=== PATIENT | male | born 1985 | race Caucasian/White ===

== ENCOUNTER 2021-12-24 11:18 | Emergency (ER) | payer OTHER, SELFPAY ==
--- NOTE | ~2021-12-24 | CT_ITS ---
EXAMINATION: CT abdomen pelvis w con DATE: 12/24/2021 13:33 INDICATION: RUQ abd pain history of questionable abd mass TECHNIQUE: Computed tomography (CT) of the abdomen and pelvis was performed with 100 mL Omnipaque-350 intravenous contrast. Automated exposure control and iterative reconstruction technique were employe d. The dose-length product was 355.44 mGy-cm. COMPARISON: None. FINDINGS: Lower thorax: Unremarkable Liver: Subcentimeter posterior cyst/hemangioma. Biliary/Gallbladder: Gallbladder is normal. No bile duct dilation. Pancreas: No mass or duct dilation. Spleen: Normal. Adrenals:No mass. Kidneys: No mass, stone, or hydronephrosis. GI tract: Esophageal and proximal gastric wall edema. No small or large bowel dilation. Normal append ix. Diverticulosis without diverticulitis. Mesentery/Peritoneum: No ascites, mass, or free air. Retroperitoneum: No mass. Pelvis: Pelvic organs are within normal limits. Soft Tissues: Soft tissues and body wall unremarkable. Bones: No acute osseous finding. IMPRESSION: Esophagitis/gastritis. No other acute abdominopelvic process detected. Reviewed, dictated and finalized at location [facility].
[2021-12-24 11:25] VITALS: BP 142/81; PULSE 70; RESP 14; TEMP 36.4; O2SAT 99
--- NOTE | 2021-12-24 12:08 | ED.ABDPAIN ---
HPI - Abdominal Pain General Chief Complaint: Abdominal Pain Stated Complaint: ABDOMINAL PAIN/NECK PAIN Time Seen by Provider: 12/24/21 12:08 Source: patient and RN notes reviewed Mode of arrival: ambulatory Limitations: no limitations History of Present Illness HPI narrative: Patient states he has had chronic diarrhea worse since his cholecystectomy. He had gone to another facility and [place] where they said that on a plain abdominal film there is some white mass that the doctor did know what it was. He denies any fever chills, he does state that the right upper quadrant abdominal pain seems to radiate to his right neck. MD elicited complaint: abdominal pain Pertinent past history: none Onset (ago): day(s) (3) Pain Consistency: constant Location: RUQ Severity: moderate Quality: aching and sharp Radiation: other (right neck) Migration to: no migration Exacerbating factors: nothing Relieving factors: nothing Associated symptoms: denies other symptoms Related Data Allergies Allergy/AdvReac Type Severity Reaction Status Date / Time No Known Allergies Allergy Verified 12/24/21 11:48 Review of Systems Review of Systems: All systems reviewed & are unremarkable except as noted in HPI and below PMFSH Past Medical History Medical History (Updated 12/24/21 @ 14:36 by Tu Reynaga MD) Chronic diarrhea Surgical History Surgical History (Updated 12/24/21 @ 12:09 by Tu Reynaga MD) History of appendectomy Hx of cholecystectomy Exam Const: General: healthy appearing and no acute distress Nutritional Appearance: well nourished Orientation/consciousness: patient oriented x3 Limitations: no limitations HENMT: Head: normal to inspection Ears: external ears normal Eyes: Conjunctivae: conjunctivae normal Pupils: Equal, round and reactive pupils present EOM: EOMs intact bilaterally Neck: Neck: normal visual inspection Resp: Effort & Inspection: normal respiratory effort Auscultation: clear to auscultation bilaterally Cardio: Rate: regular rate Rhythm: regular rhythm GI: GI Palp: Yes Soft to palpation, Yes Tenderness to palpation present (GI) (RUQ and epigastric moderate), Yes Guarding due to palpation present (GI) and No Rebound tenderness present Auscultation: normal bowel sounds Back/Spine/Pelvis: Back: no CVA tenderness Cervical Spine: cervical ROM normal Thoracic/Lumbar Spine: thoraco-lumbar ROM normal Skin: General skin exam: normal color Rashes: no rashes Neuro: General: patient oriented x3, moves all extremities, no focal motor deficits and CN's II-XI intact bilaterally Speech: normal speech Gait exam (Neuro): Normal gait present Extrem: General: normal to inspection and no clubbing, cyanosis or edema Psych: Mental Status: mental status grossly normal Affect: normal affect Attitude: cooperative Course Vital Signs Vital signs: Vital Signs Temperature 36.4 C L 12/24/21 11:25 Pulse Rate 70 12/24/21 11:25 Respiratory Rate 14 12/24/21 11:25 Blood Pressure 142/81 H 12/24/21 11:25 Pulse Oximetry 99 12/24/21 11:25 Oxygen Delivery Room Air 12/24/21 11:25 Temperature 36.8 C 12/24/21 14:40 Pulse Rate 78 12/24/21 14:40 Respiratory Rate 14 12/24/21 14:40 Blood Pressure 125/70 12/24/21 14:40 Pulse Oximetry 99 12/24/21 14:40 Oxygen Delivery Room Air 12/24/21 14:40 MDM - Abdominal Pain Differential Diagnosis Differential diagnosis: Likely abdominal pain, acute appendicitis, constipation, diverticulitis, gastroenteritis and small bowel obstruction Lab Data Attestation: I reviewed the patient's lab results. Result diagrams: 12/24/21 12:42 12/24/21 12:42 Labs: Lab Results 12/24/21 12/24/21 12/24/21 Range/Units 12:28 12:42 12:42 WBC 9.2 (4.8-10.8) K/mm3 RBC 4.66 L (4.70-6.10) M/mm3 Hgb 14.5 (14.0-18.0) g/dL Hct 42.3 (40.0-54.0) % MCV 90.8 (78.0-102.0) fL MCH 31.1 H (27.0-31.
--- NOTE | 2021-12-24 12:28 | ECG_ITS ---
Measurements Intervals [place] Rate: 61 P: 64 OR: 164 QRS: 98 QRSD: 104 T: 61 QT: 401 QTc: 406 Interpretive Statements SINUS RHYTHM BORDERLINE RIGHT AXIS DEVIATION [QRS AXIS > 90] NO PREVIOUS ECG AVAILABLE FOR COMPARISON Electronically Signed On 12-24-2021 16:51:43 CDT by Carolina Carvajal M.D.
[2021-12-24 12:42] LABS: Add Urine Microscopic? YES; Appearance Urine Clear (Clear); Bilirubin Urine Negative (Negative); Blood Urine Negative (Negative); Color Urine Yellow (Yellow); Glucose Urine UA Negative (Negative); Ketones Urine Trace (Negative); Leukocyte Esterase Ur Negative LEU/UL (Negative); Nitrate Urine Negative (Negative); Protein Urine Negative (Negative); Specific Grav Ur 1.025 (1.010-1.020); Urobilinogen Urine 0.2 mg/dL (0.2-1.0)
[2021-12-24 12:45] LABS: Basophils Absolute Auto 0.05 K/mm3 (0.00-0.10); Basophils Percent Auto 0.5 % (0.0-1.0); Eosinophils Absolute Auto 0.18 K/mm3 (0.02-0.50); Hematocrit 42.3 % (40.0-54.0); Hemoglobin 14.5 g/dL (14.0-18.0); Immature Granulocyte Absolute 0.03 K/mm3 (0.00-0.00); Immature Granulocyte Percent A 0.3 % (0.0-0.0); Lymphocytes Absolute Auto 2.58 K/mm3 (1.10-4.50); Lymphocytes Percent Auto 28.1 % (18.0-42.0); Mean Corpuscular HGB Conc 34.3 g/dL (32.0-36.0); Mean Corpuscular Hemoglobin 31.1 pg (27.0-31.0); Mean Corpuscular Volume 90.8 fL (78.0-102.0); Mean Platelet Volume 10.3 fl (8.7-11.0); Monocytes Absolute Auto 0.68 K/mm3 (0.10-0.90); Monocytes Percent Auto 7.4 % (2.0-11.0); Neutrophils Absolute Auto 5.7 K/mm3 (1.7-7.2); Neutrophils Percent Auto 61.7 % (50.0-70.0); Platelet Count Result 187 K/mm3 (150-420); Red Blood Count 4.66 M/mm3 (4.70-6.10); Red Cell Distribution Width 12.2 % (11.6-14.4); White Blood Count 9.2 K/mm3 (4.8-10.8)
[2021-12-24 12:47] LABS: Bacteria Urine Trace /hpf; Mucus Urine Few /lpf; RBC Urine None seen /hpf (0-2); Squamous Epithelial Cell Urine Rare /hpf (Few); WBC Urine None seen /hpf (0-3)
[2021-12-24 13:04] LABS: Lactic Acid Reflex 1.1 mmol/L (0.4-2.0)
[2021-12-24 13:06] LABS: Alanine Aminotransferase 15 U/L (16-63); Albumin Level 3.6 g/dL (3.4-5.0); Alkaline Phosphatase 78 U/L (46-116); Anion Gap 10 mmol/L (8-16); Aspartate Amino Transferase < 10 U/L (15-37); Bilirubin,Total 0.2 mg/dL (0.00-1.00); Blood Urea Nitrogen 18 mg/dL (7-18); Carbon Dioxide 26 mmol/L (21-32); Chloride 105 mmol/L (98-108); Estimated CRCL calculation 79 ml/min; Estimated Glomerular Filt Rate > 60; Glucose 102 mg/dL (70-99); Lipase 86 U/L (73-393); Osmolality Calculated 293 mOsm/kg (285-295); Potassium 4.1 mmol/L (3.5-5.1); Sodium 141 mmol/L (136-145); Total Protein 6.3 g/dL (6.4-8.2); Troponin I 6.9 ng/L (0.00-60.4)
[2021-12-24 13:30] VITALS: BP 118/75; PULSE 60; RESP 14; TEMP 36.3; O2SAT 99
[2021-12-24 13:40] LABS: CRP < 0.2 mg/dL (0.0-0.9)
[2021-12-24] MEDS: MAG HYDROX/ALUMINUM HYD/SIMETH 30 ML, PHENobarb/HYOSCY/ATROPINE/SCOP 32.4 MG, LIDOCAINE... PO (14:25)
[2021-12-24 14:40] VITALS: BP 125/70; PULSE 78; RESP 14; TEMP 36.8; O2SAT 99
== END 2021-12-24 14:40 | disposition home or self-care (01) ==
PROVIDERS: Emergency Provider Emergency Medicine
DX: K29.00 Acute gastritis without bleeding (principal)
CPT/HCPCS: 74177; 80053; 81001; 83605; 83690; 84484; 85025; 86140; 93005; 99284; A9270; Q9967

== ENCOUNTER 2022-01-31 13:04 | Emergency (ER) | payer OTHER, SELFPAY ==
--- NOTE | 2022-01-31 13:08 | ED.SKABFB ---
HPI - Skin/Abscess/Foreign Bdy General Chief complaint: Skin/Abscess/Foreign Body Stated complaint: Infection on left butt cheek Time Seen by Provider: 01/31/22 13:08 Source: patient and RN notes reviewed Mode of arrival: ambulatory Limitations: no limitations History of Present Illness complaint: abscess/boil Onset (ago): day(s) (3) Location: buttocks (left) Severity: moderate Quality: burning, dull and constant Pain Consistency: constant Relieving factors: none Exacerbating factors: palpation Context: none Associated symptoms: denies other symptoms Treatments prior to arrival: attempted to drain pus at home Related Data Allergies Allergy/AdvReac Type Severity Reaction Status Date / Time No Known Allergies Allergy Verified 01/31/22 13:33 Review of Systems Review of Systems: All systems reviewed & are unremarkable except as noted in HPI and below Constitutional: Constitutional: Denies chills and Denies fever(s) PMFSH Past Medical History Medical History Chronic diarrhea Surgical History Surgical History History of appendectomy Hx of cholecystectomy Exam Const: General: healthy appearing, no acute distress and alert Nutritional Appearance: well nourished and thin Orientation/consciousness: patient oriented x3 Limitations: no limitations HENMT: Head: normal to inspection Ears: external ears normal Eyes: Conjunctivae: conjunctivae normal Pupils: Equal, round and reactive pupils present EOM: EOMs intact bilaterally Neck: Neck: normal visual inspection Resp: Effort & Inspection: normal respiratory effort Auscultation: clear to auscultation bilaterally Cardio: Rate: regular rate Rhythm: regular rhythm GI: GI Palp: Yes Soft to palpation and No Tenderness to palpation present (GI) Auscultation: normal bowel sounds Back/Spine/Pelvis: Cervical Spine: cervical ROM normal Thoracic/Lumbar Spine: thoraco-lumbar ROM normal Skin: General skin exam: normal color and fluctuance (4 cm diameter left buttock) Lesions: lesion noted left buttock size (4 cm), borders ill-defined, color red, consistency firm, fluctuant and mobile, surface blanching and tender Rashes: no rashes Neuro: General: patient oriented x3, moves all extremities, no focal motor deficits and CN's II-XI intact bilaterally Speech: normal speech Gait exam (Neuro): Normal gait present Extrem: General: normal to inspection and no clubbing, cyanosis or edema Psych: Mental Status: mental status grossly normal Affect: normal affect Attitude: cooperative Procedures Abscess I/D left buttock: Date of Incision: 01/31/22 Side (if applicable): left Local Anesthetic: lidocaine 1% and with epi Amount of anesthesia used (mL): 6 Technique: incised with #11 blade and probed loculations Irrigation: No Packing used?: none I&D Results: Pus and Blood Discharge Plan Discharge Clinical Impression: Abscess of buttock, left Patient Disposition: Home, Self-Care Condition: Stable Instructions: Antibiotic Form, Abscess (ED), Incision and Drainage (ED) Additional Instructions: Use warm compresses. Tylenol and or Motrin as needed for pain. Prescriptions: New amoxicillin-pot clavulanate 875-125 mg tablet 1 tablet PO Q12H Qty: 20 0RF Follow-up/Referrals: UNKNOWN,DOCTOR [Primary Care Provider] - Time of Disposition: 13:33
[2022-01-31 13:17] VITALS: BP 112/68; PULSE 94; RESP 20; TEMP 36.6; O2SAT 96
[2022-01-31 13:37] VITALS: BP 114/70; PULSE 88; RESP 20; O2SAT 97
== END 2022-01-31 13:44 | disposition home or self-care (01) ==
PROVIDERS: Emergency Provider Emergency Medicine
DX: L02.31 Cutaneous abscess of buttock (principal)
CPT/HCPCS: 10060; 99283

== ENCOUNTER 2022-02-04 07:43 | Emergency (ER) | payer OTHER, SELFPAY ==
[2022-02-04 07:45] VITALS: BP 119/76; PULSE 78; RESP 16; TEMP 36.1; O2SAT 100
--- NOTE | 2022-02-04 08:42 | ED.GENADULT ---
HPI - General Adult General Chief complaint: Skin/Abscess/Foreign Body Stated complaint: infection on butt cheek Time Seen by Provider: 02/04/22 08:41 History of Present Illness HPI narrative: patient 36-year-old white male seen in the emergency room last week with left buttocks abscess was I and D and started on antibiotics. He is here for a wound check. He is has 3 days left of his medications. He continues to drain. But overall it is appearing better. Related Data Allergies Allergy/AdvReac Type Severity Reaction Status Date / Time No Known Allergies Allergy Verified 02/04/22 08:08 Review of Systems Review of Systems: All systems reviewed & are unremarkable except as noted in HPI and below Integumentary/Breasts: Comments: Per HPI PMFSH Past Medical History Medical History Chronic diarrhea Surgical History Surgical History History of appendectomy Hx of cholecystectomy Exam Narrative: patient is 36-year-old white male appears in no apparent distress left buttocks with a indurated mass 1.5 x 3 cm mildly tender with no overlying 2 small ulcerations measuring 0.4 cm apiece no discharge. There is no surrounding erythema to the area. Const: General: healthy appearing Nutritional Appearance: well nourished Orientation/consciousness: patient oriented x3 Limitations: no limitations Eyes: Conjunctivae: conjunctivae normal Skin: General skin exam: normal color Rashes: no rashes Wounds: wounds noted ( Left buttocks) Neuro: General: patient oriented x3 Speech: normal speech Gait exam (Neuro): Normal gait present Psych: Mental Status: mental status grossly normal Affect: normal affect Attitude: cooperative Course Vital Signs Vital signs: Vital Signs Temperature 36.1 C L 02/04/22 07:45 Pulse Rate 78 02/04/22 07:45 Respiratory Rate 16 02/04/22 07:45 Blood Pressure 119/76 02/04/22 07:45 Pulse Oximetry 100 02/04/22 07:45 Oxygen Delivery Room Air 02/04/22 07:45 Temperature 36.1 C L 02/04/22 07:45 Pulse Rate 78 02/04/22 07:45 Respiratory Rate 16 02/04/22 07:45 Blood Pressure 119/76 02/04/22 07:45 Pulse Oximetry 100 02/04/22 07:45 Oxygen Delivery Room Air 02/04/22 07:45 Medical Decision Making MDM Narrative Medical decision making narrative: patient has resolving left buttocks abscess. Slowly improving. Medical Records Medical records reviewed: No I reviewed the external patient's medical records. Vital Signs Vital Signs: Vital Signs Temperature 36.1 C L 02/04/22 07:45 Pulse Rate 78 02/04/22 07:45 Respiratory Rate 16 02/04/22 07:45 Blood Pressure 119/76 02/04/22 07:45 Pulse Oximetry 100 02/04/22 07:45 Oxygen Delivery Room Air 02/04/22 07:45 Temperature 36.1 C L 02/04/22 07:45 Pulse Rate 78 02/04/22 07:45 Respiratory Rate 16 02/04/22 07:45 Blood Pressure 119/76 02/04/22 07:45 Pulse Oximetry 100 02/04/22 07:45 Oxygen Delivery Room Air 02/04/22 07:45 Discharge Plan Discharge Clinical Impression: Abscess of skin or subcutaneous tissue Qualifiers: Site of cutaneous abscess: buttock Qualified Code(s): L02.31 - Cutaneous abscess of buttock Patient Disposition: Home, Self-Care Condition: Stable Additional Instructions: Finish your antibiotic tilt all gone. Warm baths 3 times a day. Tylenol or ibuprofen for pain [id number]. Return if you get worse or develops any new symptoms follow-up with private medical doctor. Prescriptions: No Action amoxicillin-pot clavulanate 875-125 mg tablet 1 tablet PO Q12H Qty: 20 0RF Follow-up/Referrals: UNKNOWN,DOCTOR [Primary Care Provider] - Time of Disposition: 08:51
== END 2022-02-04 09:00 | disposition home or self-care (01) ==
PROVIDERS: Emergency Provider Emergency Medicine
DX: L02.31 Cutaneous abscess of buttock (principal)
CPT/HCPCS: 99281

== ENCOUNTER 2022-03-02 17:57 | Emergency (ER) | payer OTHER, SELFPAY ==
--- NOTE | 2022-03-02 18:13 | ED.PSYCH ---
HPI - Psych General Chief Complaint: Psychiatric Symptoms Stated Complaint: suicidal Time Seen by Provider: 03/02/22 18:12 Source: patient and RN notes reviewed Mode of arrival: ambulatory Limitations: no limitations History of Present Illness MD complaint: suicidal ideation and feels depressed Onset (ago): day(s) (3) Duration: constant History of same: Yes Relieving factors: medication Exacerbating factors: none Context: recent alcohol abuse (2 days ago) Associated psychiatric symptoms: suicidal ideation, homicidal ideation and visual hallucinations Associated symptoms: denies other symptoms Treatments prior to arrival: none If self harm: admits thoughts of self harm and has plan Related Data Home Medications Medication Instructions Recorded Confirmed No Home Medications 03/02/22 03/02/22 Allergies Allergy/AdvReac Type Severity Reaction Status Date / Time No Known Allergies Allergy Verified 03/02/22 19:14 Review of Systems Review of Systems: Patient also complains of some neck pain on the right side. He thinks he slept wrong after he had drank some alcohol a few days ago. All systems reviewed & are unremarkable except as noted in HPI and below PMFSH Past Medical History Medical History Chronic diarrhea Surgical History Surgical History History of appendectomy Hx of cholecystectomy Social History Social History Substance use type: marijuana, sedatives and methamphetamine Exam Const: General: healthy appearing, no acute distress and alert Nutritional Appearance: well nourished Orientation/consciousness: patient oriented x3 Limitations: no limitations HENMT: Head: normal to inspection Ears: external ears normal Face/Nose/Sinus: Normal external nose present Face and sinus: normal facial exam Mouth: Yes moist mucous membranes abnormal Eyes: Conjunctivae: conjunctivae normal Pupils: Equal, round and reactive pupils present EOM: EOMs intact bilaterally Neck: Neck: normal visual inspection Resp: Effort & Inspection: normal respiratory effort Auscultation: clear to auscultation bilaterally Cardio: Rate: regular rate Rhythm: regular rhythm GI: GI Palp: Yes Soft to palpation and No Tenderness to palpation present (GI) Auscultation: normal bowel sounds Back/Spine/Pelvis: Cervical Spine: cervical ROM normal Thoracic/Lumbar Spine: thoraco-lumbar ROM normal Skin: General skin exam: normal color Rashes: no rashes Neuro: General: patient oriented x3, moves all extremities, no focal motor deficits and CN's II-XI intact bilaterally Speech: normal speech Gait exam (Neuro): Normal gait present Extrem: General: normal to inspection and no clubbing, cyanosis or edema Psych: Appearance: well kempt Speech and movement: Normal speech and movement present Affect: Sad affect present and Anxious affect present Attitude: cooperative Thought process: Normal thought process present Thought content: Yes Suicidality present and Yes Homicidality present Other: originally had told registration person that he is concerned about hurting a man that may come out of [facility] and interact with his . He also talked about being so stressed he might go out into the puri he himself the head with a shotgun. He then denied all this to the counselor Course Course Emergency Course: counselor from [facility] evaluated the patient and feel that he is safe to return home and arrangements for outpatient counseling and psychiatric evaluation will be arranged. Vital Signs Vital signs: Vital Signs Temperature 36.9 C 03/02/22 18:37 Pulse Rate 118 H 03/02/22 18:37 Respiratory Rate 20 03/02/22 18:37 Blood Pressure 134/110 H 03/02/22 18:37 Pulse Oximetry 99 03/02/22 18:37 Oxygen Delivery Room Air 03/02/22 18:37 Temperature 36.8 C 03/02/22 21:43 Pulse Rate 106 H 03/02/22 21:43
[2022-03-02 18:37] VITALS: BP 134/110; PULSE 118; RESP 20; TEMP 36.9; O2SAT 99
[2022-03-02 18:37] LABS: Basophils Absolute Auto 0.06 K/mm3 (0.00-0.10); Basophils Percent Auto 0.5 % (0.0-1.0); Eosinophils Absolute Auto 0.08 K/mm3 (0.02-0.50); Eosinophils Percent Auto 0.6 % (1.0-6.0); Hematocrit 45.8 % (40.0-54.0); Immature Granulocyte Absolute 0.04 K/mm3 (0.00-0.00); Immature Granulocyte Percent A 0.3 % (0.0-0.0); Lymphocytes Absolute Auto 2.77 K/mm3 (1.10-4.50); Lymphocytes Percent Auto 22.2 % (18.0-42.0); Mean Corpuscular HGB Conc 34.9 g/dL (32.0-36.0); Mean Corpuscular Hemoglobin 31.4 pg (27.0-31.0); Mean Corpuscular Volume 89.8 fL (78.0-102.0); Mean Platelet Volume 9.9 fl (8.7-11.0); Monocytes Absolute Auto 1.17 K/mm3 (0.10-0.90); Monocytes Percent Auto 9.4 % (2.0-11.0); Neutrophils Absolute Auto 8.4 K/mm3 (1.7-7.2); Platelet Count Result 308 K/mm3 (150-420); Red Cell Distribution Width 12.8 % (11.6-14.4); White Blood Count 12.5 K/mm3 (4.8-10.8)
[2022-03-02 18:38] LABS: Add Urine Microscopic? YES; Appearance Urine Clear (Clear); Bilirubin Urine 1+ (Negative); Blood Urine Negative (Negative); Color Urine Yellow (Yellow); Glucose Urine UA Negative (Negative); Ketones Urine 2+ (Negative); Leukocyte Esterase Ur Negative LEU/UL (Negative); Nitrate Urine Negative (Negative); Protein Urine Trace (Negative); Specific Grav Ur >= 1.030 (1.010-1.020); Urobilinogen Urine 0.2 mg/dL (0.2-1.0)
[2022-03-02 18:51] LABS: Amorphous Sediment Urine Few; Mucus Urine Heavy /lpf; Other Sediment Urine Spermatazoa /hpf
[2022-03-02 18:58] LABS: Alanine Aminotransferase 49 U/L (16-63); Albumin Level 4.4 g/dL (3.4-5.0); Alkaline Phosphatase 95 U/L (46-116); Amphetamine Screen Urine Positive (Negative); Anion Gap 12 mmol/L (8-16); Aspartate Amino Transferase 74 U/L (15-37); Barbiturate Screen Urine Negative (Negative); Benzodiazepines Screen Urine Positive (Negative); Bilirubin,Total 0.9 mg/dL (0.00-1.00); Blood Urea Nitrogen 17 mg/dL (7-18); Calcium 9.2 mg/dL (8.5-10.1); Cannabinoid Screen Urine Positive (Negative); Carbon Dioxide 26 mmol/L (21-32); Chloride 104 mmol/L (98-108); Cocaine Screen Urine Negative (Negative); Estimated CRCL calculation 81 ml/min; Estimated Glomerular Filt Rate > 60; Ethanol 4 mg/dL (0-6); Glucose 112 mg/dL (70-99); Methadone Screen Urine Negative (Negative); Opiate Screen Urine Negative (Negative); Osmolality Calculated 296 mOsm/kg (285-295); Phencyclidine Screen Urine Negative (Negative); Potassium 3.7 mmol/L (3.5-5.1); Sodium 142 mmol/L (136-145); Thyroid Stimulating Hormone 0.69 uIU/mL (0.36-3.74); Total Protein 8.2 g/dL (6.4-8.2)
[2022-03-02 19:00] LABS: Acetaminophen < 2 ug/mL (10-30)
[2022-03-02 19:03] LABS: Salicylate 3.9 mg/dL (2.8-20.0)
--- NOTE | 2022-03-02 19:07 | PC.NURSE ---
190 PT medically cleared and [facility] called for eval 190 nurse to nurse report given to braxton mcclure
[2022-03-02] MEDS: KETOROLAC 30 MG/ML VIAL (*BKC) IM (19:19)
--- NOTE | 2022-03-02 19:19 | PC.NURSE ---
On 03/02/22, the student, [jarocho haines ], provided care and completed [facility] documentation on this patient. I have reviewed the student's documentation and agree with the findings.
--- NOTE | 2022-03-02 19:31 | PC.NURSE ---
this staff member asked the patient, Do you feel like you want to hurt yourself? Do you feel like you want to hurt anybody? Are you seeing things that may or may not be there? Are you hearing voices? Patient stated, I do not want to hurt myself. I think a paty has been seeing my ex-girl friend but she denied that he saw her. We are trying to rekindle your relationship and i told her that I would find him and bust him up in front of her and god which is why I came here. I just need someone to talk to. I don't do drugs anymore but i did take some and I think the paty who gave it to me slipped me something else with it. This staff member asked the patient, Do you feel like you want to hurt anyone right now? The patient stated, No, but I think i need to talk to someone.
[2022-03-02 19:44] VITALS: BP 162/112; PULSE 111; RESP 20; TEMP 37.2; O2SAT 98
--- NOTE | 2022-03-02 19:46 | PC.NURSE ---
Carla from [facility] in ER for patient evaluation.
[2022-03-02 20:07] LABS: SARS-CoV-2 RNA PCR Negative (Negative)
[2022-03-02 21:43] VITALS: BP 159/93; PULSE 106; RESP 21; TEMP 36.8; O2SAT 96
== END 2022-03-02 21:46 | disposition home or self-care (01) ==
PROVIDERS: Emergency Provider Emergency Medicine
DX: F33.1 Major depressive disorder, recurrent, moderate (principal); Z20.822 Contact with and (suspected) exposure to COVID-19
CPT/HCPCS: 36415; 80053; 80307; 81001; 84443; 85025; 96372; 99284; C9803; J1885; U0003; U0005